=== PATIENT | female | born 1980 | race Two or more races ===

== ENCOUNTER → 2017-07-19 08:33 | Outpatient (CLI) | payer OTHER, SELFPAY ==
[2017-07-19 11:14] LABS: Estradiol 238.3 pg/mL
[2017-07-20 10:58] LABS: Progesterone Level 1.49 ng/mL (See Comment)
== END ==
PROVIDERS: Visit Provider Obstetrics & Gynecology
DX: N94.3 Premenstrual tension syndrome (principal)
CPT/HCPCS: 36415; 82670; 84144

== ENCOUNTER → 2017-09-29 08:35 | Outpatient (CLI) | payer OTHER, SELFPAY ==
[2017-09-29 11:06] LABS: Estradiol 59.4 pg/mL
[2017-09-30 10:22] LABS: Progesterone Level 13.54 ng/mL (See Comment)
== END ==
PROVIDERS: Visit Provider Obstetrics & Gynecology
DX: N94.3 Premenstrual tension syndrome (principal)
CPT/HCPCS: 36415; 82670; 84144

== ENCOUNTER → 2019-11-27 12:29 | Outpatient (CLI) | payer OTHER, SELFPAY ==
[2019-11-27 13:23] LABS: Vitamin B12 406 pg/mL (211-911)
[2019-11-27 14:25] LABS: Follicle Stimulating Hormone 9.6 mIU/mL; Luteinizing Hormone 10.1 mIU/mL; Prolactin 21.9 ng/mL
== END ==
PROVIDERS: Referring Provider Student in an Organized Health Care Education/Training Program; Visit Provider Student in an Organized Health Care Education/Training Program
DX: L65.9 Nonscarring hair loss, unspecified (principal); N92.6 Irregular menstruation, unspecified
CPT/HCPCS: 36415; 82607; 82627; 82746; 83001; 83002; 84146; 84402; 82626

== ENCOUNTER → 2019-11-27 13:04 | Outpatient (CLI) | payer OTHER, SELFPAY ==
[2019-11-30 04:28] LABS: HPV APTIMA, High Risk Negative (Negative); HPV Reflexed? NOT INDICATED
== END ==
PROVIDERS: Visit Provider Student in an Organized Health Care Education/Training Program
DX: Z12.4 Encounter for screening for malignant neoplasm of cervix (principal)
CPT/HCPCS: 88175; G0145